=== PATIENT | female | born 1935 | race Caucasian/White ===

== ENCOUNTER 2017-03-24 16:33 | Emergency (ER) | payer MEDICARE ==
[~2017-03-24] VITALS: Ht 162.6 cm; Wt 49.9 kg
[~2017-03-24 16:33] MED LIST: ASPIRIN 81MG TA81 MG PO; FAMOTIDINE 20MG20 MG PO; FISH OIL1000 MG PO; FLECAINIDE ACET50 MG OR; FLECAINIDE ACET50 MG PO; FUROSEMIDE 20MG20 MG PO; ISOSORBIDE DINI30 MG PO; ISOSORBIDE DINITRATE 20 MG PO; METAMUCIL(SF)1 EACH PO; METOPROLOL 25 M25 MG PO; METOPROLOL SUCC25 M1 PO; METOPROLOL25 MG PO; MULTI VITAMINS1 TAB PO; NITROSTAT 0.4M0.4 MG SL; PRAVACHOL 20MG.20 MG PO; PRAVASTATIN 40M40 MG PO; WARFARIN 3MG TAB3 MG PO; WARFARIN SOD5 MG PO; WARFARIN4 MG PO; ZANTAC 150150 MG PO
[2017-03-24 17:00] LABS: HEMOGLOBIN 12.4 g/dL (12.2-16.2); LYMPH # 2.5 K/mm3 (0.7-4.5); LYMPH % 40.5 % (10-50.0)
--- OUTSIDE RECORDS SUMMARY | 2017-03-24 17:02 | External Medical Summary Rpt | CCD ---
Author Author , BENEDICTO Organization BENEDICTO Address Unknown Phone [email or web address] Care Team Providers Care Car Washer Name Role Phone See Lujan MD, Unavailable Unavailable See Lujan MD Purpose Continuity of Care Document - 09-04-2012 through 2016 Problems Code Diagnosis DOS Provider Status 413.9 413.9 05-21-2013 Beulah ANGINA [facility] NEC/NOS 910.0 910.0 05-21-2013 Beulah ABRASION [facility] [id number] 05-21-2013 Beulah CONTUSION [facility] FACE/SCALP/ Hospital NCK E849.0 E849.0 05-21-2013 Beulah ACCIDENT IN [facility] E885.9 E885.9 FALL 05-21-2013 Mynor FROM [facility] SLIPPING, Hospital TRIPPING, OR STUMBLING NEC V06.5 V06.5 05-21-2013 Beulah TETANUS-DIP [facility] [TD][DT] V45.81 V45.81 05-21-2013 Beulah AORTOCORONA [facility] Allergies, Adverse Reactions, Alerts Type Allergy to substance Adverse Reaction to Substance Substance Reaction Severity MED GIVEN TO REVERSE Unknown Unknown EPIDURAL Medications Na ND Rx Da Fi Fi Am Da Di Ph RX Ph St me C No te ll ll ou ys ag ar # ys at rm s nt no ma ic us Or Da si cy ia de te s n re d TE 49 12 0 No TA 28 -2 NU 10 2- Lo S 82 20 ng TO 01 13 er XO 0 ID Ac ti AD ve SO RB ED AL Vital Signs 05-21-2013 19:07 Name Value Interpretat Reference Comment ion Range BP 70 mm[Hg] Diastolic BP Systolic 181 mm[Hg] Heart 72 /min Rate/Pulse O2% 98 % Respiratory 18 /min Rate 09-04-2012 13:17 Name Value Interpretat Reference Comment ion Range Body 98.1 [degF] Temperature BP 69 mm[Hg] Diastolic BP Systolic 115 mm[Hg] Heart 53 /min Rate/Pulse O2% 98 % Respiratory 20 /min Rate 09-04-2012 13:07 Name Value Interpretat Reference Comment ion Range Body 98.2 [degF] Temperature BP 69 mm[Hg] Diastolic BP Systolic 115 mm[Hg] Heart 53 /min Rate/Pulse O2% 98 % Respiratory 20 /min Rate Encounters Encounter Start End Date Code Location Performer Type Date Emergency ALEISHA Lujan MD (ER) 3 18:31 3 19:08 [facility] Emergency ALEISHA Osorio (ER) 3 12:08 3 13:18 [facility]
--- OUTSIDE RECORDS SUMMARY | 2017-03-24 17:02 | External Medical Summary Rpt | CCD ---
Author Author , BENEDICTO Organization BENEDICTO Address Unknown Phone [email or web address] Care Team Providers Care Technical Specialist Name Role Phone See Lujan MD, Unavailable Unavailable See Lujan MD Purpose Continuity of Care Document - 09-04-2012 through 2016 Problems Code Diagnosis DOS Provider Status 413.9 413.9 05-21-2013 [place] ANGINA [facility] NEC/NOS 910.0 910.0 05-21-2013 [place] ABRASION [facility] [id number] 05-21-2013 [place] CONTUSION [facility] FACE/SCALP/ Hospital NCK E849.0 E849.0 05-21-2013 [place] ACCIDENT IN [facility] E885.9 E885.9 FALL 05-21-2013 Mynor FROM [facility] SLIPPING, Hospital TRIPPING, OR STUMBLING NEC V06.5 V06.5 05-21-2013 [place] TETANUS-DIP [facility] [TD][DT] V45.81 V45.81 05-21-2013 [place] AORTOCORONA [facility] Allergies, Adverse Reactions, Alerts Type Allergy to [...] Lujan MD (ER) 3 18:31 3 19:08 [facility] Emergency ALEISHA Osorio (ER) 3 12:08 3 13:18 [facility]
--- OUTSIDE RECORDS SUMMARY | 2017-03-24 17:02 | External Medical Summary Rpt | CCD ---
Author Author , BENEDICTO Organization BENEDICTO Address Unknown Phone [email or web address] Immunization Name Date Rout CVX Reac Dose Comm Prov Is Faci e tion ent ider Refu lity Give sed n Infl 10-2 135 999 Hist D203 No D203 uenz 5-20 oric 45 45 a, 16 al High Info rmat Dose ion - Sour ce Unsp ecif ied PPV2 10-2 33 999 Hist H149 No H149 3 2-19 oric 98 al Info rmat ion - Sour ce Unsp ecif ied Td 03-1 9 999 Hist H149 No H149 (brandon 1-19 oric lt), 97 al Info adso rmat rbed ion - Sour ce Unsp ecif ied
--- OUTSIDE RECORDS SUMMARY | 2017-03-24 17:02 | External Medical Summary Rpt | CCD ---
Author Author [employer]duent Organization [employer] Address Unknown Phone Unavailable Purpose Continuity of Care Document - through 2016
--- OUTSIDE RECORDS SUMMARY | 2017-03-24 17:02 | External Medical Summary Rpt ---
Author Author BENEDICTO Pereyra, BENEDICTO Production Organization [employer] Address Unknown Phone Unavailable
--- OUTSIDE RECORDS SUMMARY | 2017-03-24 17:02 | External Medical Summary Rpt | CCD ---
Author Author , BENEDICTO Organization BENEDICTO Address Unknown Phone [email or web address] Immunization Name Date Rout CVX Reac Dose [...]
[2017-03-24 17:32] LABS: BUN 22 mg/dL (7-18)
--- NOTE | 2017-03-24 17:39 | RADIOLOGY REPORT PS360 ---
CHEST-PORTABLE HISTORY: CHEST PAIN ORDERING PHYSICIAN: Mitzy Hong MD PATIENT AGE: 81 years COMPARISON: 01/09/2014 FINDINGS: There has been a prior median sternotomy. The heart size is normal. There is however some prominence along the left heart border superiorly which could represent prominent pulmonary outflow tract or enlarged left atrium. No lobar consolidation or collapse. No acute bony anomalies. IMPRESSION: 1. Prior CABG with prominent pulmonary outflow tract versus enlarging left atrium. 2. Otherwise negative chest.
--- NOTE | 2017-03-24 17:46 | Emergency Room Report ---
History of Present Illness Time Seen by [id number] Presenting Problem in Triage Pt arrived:Wheelchair Presenting Problem:PT C/O OF INTERMITTENT EPIGASTRIC CHEST PAIN. Onset of symptoms date/time:03/24 or onset unknown for: Treatment Prior to Arrival: FORMULATION TECHNICIAN Provided by: Sepsis Risk Assessment: Temp: 98.1 B/P: 176/100 MAP: 125 Pulse: 87 Resp: 20 Recent fever? N Clinical Suspician of Infection? N Mental Status: 1 - Regular (Normal Baseline) Sepsis Risk:Low Sepsis Risk Have you (or family members/close friends) recently traveled outside the [place]? N If Yes, where/when: Have you had exposure to infectious disease within the past month? N TB? Other? Specify: Intermittent epigastric pain since about eight or ten hours ago, occurred at rest, seems better in ER s/p belching. No blood from above or below, no stool changes, no huang chest pain but has hx CABG, pt of Dr. Michael Manrique in [place]. She is not diabetic. Pain somewhat positional, nonradiating. Able to eat. No fever or flu sx. No calf pain. ALLERGIES Uncoded Allergies: MED GIVEN TO REVERSE EPIDURAL (05/22/12) Home Medications Reported Medications Flecainide Acetate 50 MG OR BID #180 Nitroglycerin (Nitrostat 0.4MG (1/150 Gr) Tabs #25) 0.4 MG SL [id number] ASPIRIN (Aspirin) 81 MG PO DAILY Warfarin Sodium 4 MG PO Q48H PRAVASTATIN SODIUM (Pravastatin Sodium) 40 MG PO QHS Metoprolol Succinate Xl (Metoprolol ER 25MG) 25 MG PO BID Isosorbide Dinitrate (Isordil 20MG) 20 MG PO DAILY History Medical History General CAD? No Angina: Yes VT: Yes Hypertension? No Hyperlipidemia? Yes CHF? Yes DVT? No PE? No COPD? No Asthma? No Anemia? No GERD? No Gastric ulcers? No GI Bleed? No Hernia? No Thyroid Problems? No Hypothyroidism? No CVA? No Seizures? No Diabetes? No Renal Insuffiency? No End Stage Renal Disease? No UTI? No Stones? No BPH? No GB Disease: No Nephritic Syndrome? No Asplenia? No Hepatitis? No Sickle Cell Disease? No Arthritis? No Migraines? No Cataracts? Yes Glaucoma? No MRSA? No HIV? No TB? No Anxiety? No Depression? No Cancer? No More? 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 SPINAL STENOSIS Family History Family Hx Diabetes No CAD Yes Hypertension No Hyperlipidemia No Cancer Yes TB No Social History Smoking Hx Smoker: Never Smoker Tobacco: No Alcohol Alcohol: No Review of Systems All Other Systems Reviewed and Negative Cardiovascular denies no symptoms reported Gastrointestinal see HPI Physical Exam Vital Signs Vital Signs Date Time Temp Pulse Resp B/P Pulse O2 O2 Flow FiO2 Ox Delivery Rate 03/24 1804 98.1 67 20 137/60 100 03/24 1635 98.1 87 20 176/100 100 General Appearance normal appearance, WD/WN, no apparent distress Eye Exam - bilateral eye normal exam, bilateral eye PERRL, bilateral eye EOMI Neck normal inspection, non-tender, supple, full range of motion Respiratory Status Yes: trachea midline, chest symmetrical, non tender chest. No: respiratory distress, tender on palpation, use of accessory muscles, pain on inspiration, pain on expiration, productive cough, non productive cough (CABG scar, old). Lung Sounds bilateral: normal breath sounds, lungs clear. 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 No Results/Orders Laboratory Tests 03/24/17 1645: Lipase 125 03/24/17 1645: Sodium 142, Potassium 4.4, Chloride 105, Carbon Dioxide 29, BUN 22 H, Creatinine 1.0, Estimated Creat Clear 34 L, Estimated GFR (MDRD) 53 L, Glucose 123 H, Calcium 8.9, Total Bilirubin 0.7, AST 26, ALT 20, Alkaline Phosphatase 80, Creatine Kinase 76, CK-MB (CK-2) Rel Index 1.8, CK and CKMB Interp 1.4, Troponin I < 0.02, Total Protein 6.9, Albumin 3.8, Globulin 3.1, Albumin/ Globulin Ratio 1.2, WBC 6.2, RBC 4.08 L, Hgb 12.4, Hct 38.8, MCV 95.0, RDW 12.6 , Plt Count 230, MPV 7.7, Gran % 48.0, Gran # 3.0, Lymphocytes % 40.5, Monocytes % 7.0, Eosinophils % 3.3, Basophils % 1.1, Lymphocytes # 2.5, Monocytes # 0.4, Eosinophils # 0.2, Basophils # 0.1, PUBS MCHC 32.0, MCH 30.4 Current Medication Orders Sig/Lexi Start time Last Medication Dose Route Stop Time Status Admin Sodium Chloride 10 ML PRN PRN 03/24 1700 AC IV 03/25 165 Orders Procedure Date/time Status LIPASE 03/24 1745 Complete 12 LEAD [facility] 03/24 1655 Active ELECTROCARDIOGRAM REQUEST 03/24 1655 Active IV SALINE LOCK 03/24 1655 Active COMPLETE METABOLIC PANEL 03/24 1655 Complete CBC WITH AUTO DIFF 03/24 1655 Complete CARDIAC ENZYMES 03/24 1655 Complete CM/EKG CM/EKG EKG rate, NSR, rhythm, no evid. of ischemic chgs, no ectopy, normal QRS, normal NE (Afib 70's hx same 01/09/14), normal EKG, old Q w noted prior XRAY/CT/US XRAY/CT/US XRAY chest XR interpretation by reviewed by me (report reviewed) Xray Results normal/NAD, neg acute per report Progress ED Progress Notes Date 03/24/17 Time 180 Comment No discomfort s/p belching. Departure Departure Time of Disposition 1813 Disposition DC Home or Self Care(routine) Clinical Impression Primary Impression: Epigastric pain Condition STABLE Referrals Fabricio CALLES,A.C. (Family) Patient Instructions Acute Abdominal Pain Additional Instructions See Dr. Regalado for follow up , one to two days, Maalox as needed. Discharge Counseling Counseled pt/family regarding diagnosis, test results, medications/RX, home care, follow up needs ED Critical Care Critical Care No at [id number]
--- NOTE | 2017-03-24 17:46 | Emergency Room Report ---
History of Present Illness Time Seen by [id number] Presenting Problem in Triage Pt arrived:Wheelchair Presenting Problem:PT C/O OF INTERMITTENT EPIGASTRIC CHEST PAIN. 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 N Clinical Suspician of Infection? N Mental Status: 1 - Regular (Normal Baseline) Sepsis Risk:Low Sepsis Risk Have you (or family members/close friends) recently traveled outside the [place]? N If Yes, where/when: Have you had exposure to infectious disease within the past month? N TB? Other? Specify: Intermittent epigastric pain since about eight or ten hours ago, occurred at rest, seems better in ER s/p belching. No blood from above or below, no stool changes, no huang chest pain but has hx CABG, pt of Dr. Michael Manrique in [place]. She is not diabetic. Pain somewhat positional, nonradiating. Able to eat. No fever or flu sx. No calf pain. ALLERGIES Uncoded Allergies: MED GIVEN TO REVERSE EPIDURAL (05/22/12) Home Medications Reported Medications Flecainide Acetate 50 MG OR BID #180 Nitroglycerin (Nitrostat 0.4MG (1/150 Gr) Tabs #25) 0.4 MG SL [id number] ASPIRIN (Aspirin) 81 MG PO DAILY Warfarin Sodium 4 MG PO Q48H PRAVASTATIN SODIUM (Pravastatin Sodium) 40 MG PO QHS Metoprolol Succinate Xl (Metoprolol ER 25MG) 25 MG PO BID Isosorbide Dinitrate (Isordil 20MG) 20 MG PO DAILY History Medical History General CAD? No Angina: Yes PR: Yes Hypertension? No Hyperlipidemia? Yes CHF? Yes DVT? No PE? No COPD? No Asthma? No Anemia? No GERD? No Gastric ulcers? No GI Bleed? No Hernia? No Thyroid Problems? No Hypothyroidism? No CVA? No Seizures? No Diabetes? No Renal Insuffiency? No End Stage Renal Disease? No UTI? No Stones? No BPH? No GB Disease: No Nephritic Syndrome? No Asplenia? No Hepatitis? No Sickle Cell Disease? No Arthritis? No Migraines? No Cataracts? Yes Glaucoma? No MRSA? No HIV? No TB? No Anxiety? No Depression? No Cancer? No More? 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 SPINAL STENOSIS Family History Family Hx Diabetes No CAD Yes Hypertension No Hyperlipidemia No Cancer Yes TB No Social History Smoking Hx Smoker: Never Smoker Tobacco: No Alcohol Alcohol: No Review of Systems All Other Systems Reviewed and Negative Cardiovascular denies no symptoms reported Gastrointestinal see HPI Physical Exam Vital Signs Vital Signs Date Time Temp Pulse Resp B/P Pulse O2 O2 Flow FiO2 Ox Delivery Rate 03/24 1804 98.1 67 20 137/60 100 03/24 1635 98.1 87 20 176/100 100 General Appearance normal appearance, WD/WN, no apparent distress Eye Exam - bilateral eye normal exam, bilateral eye PERRL, bilateral eye EOMI Neck normal inspection, non-tender, supple, full range of motion Respiratory Status Yes: trachea midline, chest symmetrical, non tender chest. No: respiratory distress, tender on palpation, use of accessory muscles, pain on inspiration, pain on expiration, productive cough, non productive cough (CABG scar, old). Lung Sounds bilateral: normal breath sounds, lungs clear. Cardiovascular normal exam, regular rate/rhythm, no peripheral edema, no gallop, no JVD, no murmur, no rub, normal peripheral pulses (irr irr w/ hx Afib) Peripheral Pulses Pulses normal Yes (irr irr hx same) Gastrointestinal normal bowel sounds, normal exam, non tender, soft, no organomegaly, no pulsatile mass, no guarding, no rebound Extremities non-tender, normal range of motion, normal inspection, normal capillary refill, no calf tenderness, no pedal edema Strength 5 Upper Ext (L), 5 Upper Ext (R), 5 Lower Ext (L), 5 Lower Ext (R) Neurologic alert, memorial mason II-XII nml as tested, normal exam, no motor/sensory deficits, oriented x 3 (alert, a little [place]; nonfocal) Glascow Coma Scale Glascow Coma Scale Response Value EYE response: 4 Spontaneously 4 MOTOR response: 6 OBEYS 6 VERBAL response: 5 Oriented & Converses 5 Total 15 Skin intact, normal color, warm/dry Medical Decision Making LABS/Meds/Orders Pt receiving controlled substance in ED? No Results/Orders Laboratory Tests 03/24/17 1645: Lipase 125 03/24/17 1645: Sodium 142, Potassium 4.4, Chloride 105, Carbon Dioxide 29, BUN 22 H, Creatinine 1.0, Estimated Creat Clear 34 L, Estimated GFR (MDRD) 53 L, Glucose 123 H, Calcium 8.9, Total Bilirubin 0.7, AST 26, ALT 20, Alkaline Phosphatase 80, Creatine Kinase 76, CK-MB (CK-2) Rel Index 1.8, CK and CKMB Interp 1.4, Troponin I < 0.02, Total Protein 6.9, Albumin 3.8, Globulin 3.1, Albumin/ Globulin Ratio 1.2, WBC 6.2, RBC 4.08 L, Hgb 12.4, Hct 38.8, MCV 95.0, RDW 12.6 , Plt Count 230, MPV 7.7, Gran % 48.0, Gran # 3.0, Lymphocytes % 40.5, Monocytes % 7.0, Eosinophils % 3.3, Basophils % 1.1, Lymphocytes # 2.5, Monocytes # 0.4, Eosinophils # 0.2, Basophils # 0.1, PUBS MCHC 32.0, MCH 30.4 Current Medication Orders Sig/Lexi Start time Last Medication Dose Route Stop Time Status Admin Sodium Chloride 10 ML PRN PRN 03/24 1700 AC IV 03/25 165 Orders Procedure Date/time Status LIPASE 03/24 1745 Complete [facility] 03/24 1655 Active ELECTROCARDIOGRAM REQUEST 03/24 1655 Active IV SALINE LOCK 03/24 1655 Active COMPLETE METABOLIC PANEL 03/24 1655 Complete CBC WITH AUTO DIFF 03/24 1655 Complete CARDIAC ENZYMES 03/24 1655 Complete CM/EKG CM/EKG EKG rate, NSR, rhythm, no evid. of ischemic chgs, no ectopy, normal QRS, normal [place] (Afib 70's hx same 01/09/14), normal EKG, old Q w noted prior XRAY/CT/US XRAY/CT/US XRAY chest XR interpretation by reviewed by me (report reviewed) Xray Results normal/NAD, neg acute per report Progress ED Progress Notes Date 03/24/17 Time 180 Comment No discomfort s/p belching. Departure Departure Time of Disposition 1813 Disposition DC Home or Self Care(routine) Clinical Impression Primary Impression: Epigastric pain Condition STABLE Referrals Fabricio CALLES,A.C. (Family) Patient Instructions Acute Abdominal Pain Additional Instructions See Dr. Regalado for follow up , one to two days, Maalox as needed. Discharge Counseling Counseled pt/family regarding diagnosis, test results, medications/RX, home care, follow up needs ED Critical Care Critical Care No at [id number]
[2017-03-24 17:47] LABS: GFR (ESTIMATED) 53 ML/MIN (59-)
[2017-03-24 18:53] VITALS: BP 137/60
== END 2017-03-24 18:54 | disposition home or self-care (01) ==
LOC: ER 16:33
PROVIDERS: Emergency Medicine
DX: R10.13 Epigastric pain (principal); R07.9 Chest pain, unspecified; Z79.82 Long term (current) use of aspirin; Z79.01 Long term (current) use of anticoagulants; I20.8 Other forms of angina pectoris